=== PATIENT | male | born 1995 | race Caucasian/White ===

== ENCOUNTER 2017-04-05 20:50 | Emergency (ER) | payer BC, OTHER ==
[~2017-04-05] VITALS: Ht 154.9 cm; Wt 76.7 kg
[~2017-04-05 20:50] MED LIST: OMEP20CA59 PO
[2017-04-05 20:54] VITALS: Ht 154.9 cm; Wt 76.7 kg
[2017-04-05 21:44] LABS: BASO % 0.5 %; BASO ABS # 0.04 K/uL (0-0.2); COMPLETE YES; HEMATOCRIT 44.6 % (42-52); IG% 0.3 %; LYMPH % 15.6 %; LYMPH ABS # 1.14 K/uL (1.2-3.4); MEAN CELL VOLUME 91.6 fL (80-100); MEAN CORPUSCULAR HEMOGLOBIN 32.9 pg (25-34); MEAN CORPUSCULAR HGB CONC 35.9 g/dl (32-36); MEAN PLATELET VOLUME 9.3 fL (7.4-10.4); MONO % 7.5 %; NEUT % 76.1 %; PLATELET COUNT 218 K/uL (130-400); RED BLOOD COUNT 4.87 M/uL (4.7-6.1); WHITE BLOOD COUNT 7.31 K/uL (4.8-10.8)
[2017-04-05 22:01] LABS: BUN/CREATININE RATIO 9.5 (10-20); CREATININE 0.97 mg/dl (0.60-1.40); POTASSIUM 3.6 mmol/L (3.5-5.1)
[2017-04-05 22:04] LABS: ALB/GLOB RATIO 0.9 (0.9-2)
[2017-04-05 22:08] LABS: URINE APPEARANCE CLEAR (CLEAR); URINE BILIRUBIN NEG (NEG); URINE COLOR YELLOW; URINE NITRITE NEG (NEG); URINE SPECIFIC GRAVITY 1.011 (1.000-1.030); UROBILINOGEN NEG (NEG); ZZUR CULT IF INDIC CLEAN CATCH NO
[2017-04-05 22:10] LABS: MANUAL MICROSCOPIC REQUIRED? NO; REVIEW REQ? NO
[2017-04-05 22:15] LABS: CALCIUM 8.4 mg/dl (8.5-10.1)
[2017-04-05] MEDS ORDERED: MoRPHine SULFATE 4 MG/ML 1 ML CARP\\VIAL IV STA (22:28)
[2017-04-05] MEDS ORDERED: ONDANSETRON INJ 2 MG/ML 2 ML VIAL IV STA (22:28)
[2017-04-05] MEDS ORDERED: SODIUM CHLORIDE 0.9% 1000ML 1,000 ML IV STA (22:28)
[2017-04-05] MEDS ORDERED: OPTIRAY 320 IV PRN (22:45)
[2017-04-05] MEDS ORDERED: ONDA4TAB10 SL (23:51)
--- NOTE | 2017-04-05 23:52 | EMERGENCY ROOM VISIT NOTE ---
History Report prepared by Melvi: Poppy La Under the Supervision of: Dr. Jovanni Ramesh M.D. First contact with patient: 21:40 Chief Complaint: ABDOMINAL PAIN Stated Complaint: DIARRHEA,COUGH,ABD PAIN,VOMITING,NOT EAT/DRINK History of Present Illness The patient is a 22 year old male who presents to the Emergency Room with complaints of persistent diarrhea starting yesterday. The patient's mother provides the history. He started having diarrhea yesterday which she was not alarmed about at the time. This morning the patient was crying on the toilet which concerned her and he was still having diarrhea. He also has been vomiting. He denied choking on anything. The patient has been clutching his right side and is more diaphoretic. He is not eating or drinking which is very unusual for the patient. He does not have bloody stools or fever. He has a history of Down syndrome. He does not have any history of abdominal surgery. He does not have any other medical problems. Source of History: parent Onset: yesterday Position: other (global) Quality: other (diarrhea) Timing: other (persistent) Associated Symptoms: + diaphoresis, + vomiting, + abdominal pain, No fevers , No hematochezia Note: Pt has decreased appetite. Review of Systems See HPI for pertinent positives & negatives. A total of 10 systems reviewed and were otherwise negative. Past Medical & Surgical Medical Problems: (1) DOWN'S SYNDROME Family History Diabetes mellitus Social History Smoking Status: Never Smoker Alcohol Use: none Drug Use: none Marital Status: single Housing Status: lives with family Occupation Status: disabled, student Current/Historical Medications Scheduled Melatonin (Melatonin), 5 MG PO HS Scheduled PRN Cetirizine Hcl (Zyrtec), 10 MG PO DAILY PRN for Allergy Symptoms Ondasetron Odt (Zofran Odt), 4 MG SL Q6H PRN for Nausea Allergies Coded Allergies: No Known Allergies (Verified , 04/05/17) Physical Exam Vital Signs Date Time Temp Pulse Resp B/P (MAP) Pulse Ox O2 Delivery O2 Flow Rate FiO2 04/06/17 00:45 36.7 75 16 116/81 96 04/06/17 00:41 75 16 116/81 96 Room Air 04/05/17 22:49 36.7 58 16 132/92 98 Room Air 04/05/17 20:54 36.7 55 20 122/90 99 Room Air Physical Exam GENERAL: Patient is in moderate distress, nonverbal, consistent with Down's syndrome. HEENT: No acute trauma, normocephalic atraumatic, mucous membranes moist, no nasal congestion, no scleral icterus. NECK: No stridor, no adenopathy, no meningismus, trachea is midline. LUNGS: No dyspnea. Clear to auscultation and equal bilaterally. No wheeze, no rhonchi. HEART: Regular rate and rhythm. No murmurs, rubs, gallops appreciated. ABDOMEN: Soft, tenderness to palpation of the entire abdomen, nonfocal, bowel sounds positive, no masses appreciated, no peritonitis. BACK: No midline tenderness, no CVA tenderness EXTREMITIES: Normal motion all extremities, no cyanosis, no edema. NEUROLOGIC: Alert and oriented, no acute motor or sensory deficits, no focal weakness, cranial nerves grossly intact. SKIN: No rash, no jaundice, no diaphoresis. Medical Decision & Procedures ER Provider Diagnostic Interpretation: Radiology results and stated below per my review and [facility] radiologist interpretation: CT abdomen & pelvis: The liver, gallbladder, spleen, pancreas, adrenal glands, and kidneys show no substantial abnormality. Appendix is unremarkable. Multiple loops of bowel are fluid-filled. Some demonstrate questionable wall thickening. No dilation. Question minimal wall thickening of the proximal transverse colon. The combination of findings could represent minimal enterocolitis. Borderline mesenteric lymphadenopathy, particularly in the upper/central abdomen. May be reactive to subtle underlying infection such as an enteritis. Laboratory Results 04/05/17 21:10 Red Blood Count 4.87, Mean Corpuscular Volume 91.6, Mean Corpuscular Hemoglobin 32.9, Mean Corpuscular Hemoglobin Concent 35.9, Mean Platelet Volume 9.3, Neutrophils (%) (Auto) 76.1, Lymphocytes (%) (Auto) 15.6, Monocytes (%) (Auto) 7.5, Eosinophils (%) (Auto) 0.0, Basophils (%) (Auto) 0.5, Neutrophils # (Auto) 5.56, Lymphocytes # (Auto) 1.14, Monocytes # (Auto) 0.55, Eosinophils # (Auto) 0.00, Basophils # (Auto) 0.04 04/05/17 21:10 Test 04/05/17 21:10 04/05/17 21:55 White Blood Count 7.31 K/uL (4.8-10.8) Red Blood Count 4.87 M/uL (4.7-6.1) Hemoglobin 16.0 g/dL (14.0-18.0) Hematocrit 44.6 % (42-52) Mean Corpuscular Volume 91.6 fL (80-100) Mean Corpuscular Hemoglobin 32.9 pg (25-34) Mean Corpuscular Hemoglobin Concent 35.9 g/dl (32-36) Platelet Count 218 K/uL (130-400) Mean Platelet Volume 9.3 fL (7.4-10.4) Neutrophils (%) (Auto) 76.1 % Lymphocytes (%) (Auto) 15.6 % Monocytes (%) (Auto) 7.5 % Eosinophils (%) (Auto) 0.0 % Basophils (%) (Auto) 0.5 % Neutrophils # (Auto) 5.56 K/uL (1.4-6.5) Lymphocytes # (Auto) 1.14 K/uL (1.2-3.4) Monocytes # (Auto) 0.55 K/uL (0.11-0.59) Eosinophils # (Auto) 0.00 K/uL (0-0.5) Basophils # (Auto) 0.04 K/uL (0-0.2) RDW Standard Deviation 43.6 fL (36.4-46.3) RDW Coefficient of Variation 13.0 % (11.5-14.5) Immature Granulocyte % (Auto) 0.3 % Immature Granulocyte # (Auto) 0.02 K/uL (0.00-0.02) Anion Gap 11.0 mmol/L (3-11) Est Creatinine Clear Calc Drug Dose 106.6 ml/min Estimated GFR () 129.7 Estimated GFR (Non- 111.9 BUN/Creatinine Ratio 9.5 (10-20) Calcium Level 8.4 mg/dl (8.5-10.1) Total Bilirubin 0.7 mg/dl (0.2-1) Aspartate Amino Transf (AST/SGOT) 26 U/L (15-37) Alanine Aminotransferase (ALT/SGPT) 67 U/L (12-78) Alkaline Phosphatase 68 U/L (45-117) Total Protein 7.5 gm/dl (6.4-8.2) Albumin 3.6 gm/dl (3.4-5.0) Globulin 3.9 gm/dl (2.5-4.0) Albumin/Globulin Ratio 0.9 (0.9-2) Lipase 117 U/L (73-393) Urine Color YELLOW Urine Appearance CLEAR (CLEAR) Urine pH 6.0 (4.5-7.5) Urine Specific [place] 1.011 (1.000-1.030) Urine Protein NEG (NEG) Urine Glucose (UA) NEG (NEG) Urine Ketones NEG (NEG) Urine Occult Blood NEG (NEG) Urine Nitrite NEG (NEG) Urine Bilirubin NEG (NEG) Urine Urobilinogen NEG (NEG) Urine Leukocyte Esterase NEG (NEG) Date/Time Source Procedure Growth Status 04/05/17 22:25 Stool C.difficile Toxin B Gene (PCR) - Final No C. difficile toxin B gene detected Complete Laboratory results as reviewed by me. Medications Administered Medications (Trade) Dose Ordered Sig/Debora Route Start Time Stop Time Status Last Admin Dose Admin Morphine Sulfate (MoRPHine SULFATE INJ) 4 mg NOW STAT IV 04/05/17 22:28 04/05/17 22:29 DC 04/05/17 22:47 4 MG Ondansetron HCl (Zofran Inj) 4 mg NOW STAT IV 04/05/17 22:28 04/05/17 22:29 DC 04/05/17 22:46 4 MG Sodium Chloride 1,000 ml @ 999 mls/hr Q1H1M STAT IV 04/05/17 22:28 04/05/17 23:28 DC 04/05/17 22:46 999 MLS/HR Ondansetron HCl (ZOFRAN ODT 4MG Home Pack) 1 homepack UD ONCE PO 04/06/17 00:00 04/06/17 00:01 DC 04/06/17 00:40 1 HOMEPACK Oxycodone HCl (Roxicodone Immediate Rel 5MG Home Pack) 1 homepack UD ONCE PO 04/06/17 00:00 04/06/17 00:01 DC 04/06/17 00:39 1 HOMEPACK ED Course 2153: The patient was evaluated in room A10. A complete history and physical exam was performed. 2228: NSS 1000 ml @ 999 mls/hr IV, Zofran Inj 4 mg IV, Morphine Sulfate 4 mg IV. 2349: I reevaluated the patient. He is feeling much better. He is sleeping, but easily aroused. I discussed results and discharge instructions with his mother: She verbalized understanding and agreement. The patient is ready for discharge. 0000: Oxycodone HCl 1 homepack PO, Ondansetron HCl 1 homepack PO. Medical Decision Differential: Appendicitis, Diverticulitis, PUD/Gastritis, Biliary Pathology, UTI, Pyelonephritis, Renal Colic, Bowel Obstruction, Aortic Pathology, Acute Coronary Syndrome, amongst other pathologies entertained. Medication Reconciliation: I attest that I have personally reviewed the patient 's current medication list. Blood Pressure Screening: Patient was found to have a slightly elevated blood pressure due to circumstances. I do not believe that the patient requires hypertension monitoring. 22 yr old non-verbal male arrives with abdominal pain, vomiting, and diarrhea. Difficult to get good exam and with his symptoms seems reasonable doing CT abdo/ pelv for further evaluation. Labs looking OK. CT abdo pelv consistent with enteritis and mesenteric adenitis. No surgical findings. With zofran/morphine he is much better and sleeping. Easily awoken. Will given limited narc as outpatient for symptoms control along with zofran. Reviewed symptoms requiring RTED. Impression Primary Impression: Acute gastroenteritis Additional Impressions: Mesenteric adenitis Dehydration Nausea, vomiting and diarrhea Scribe Attestation The scribe's documentation has been prepared under my direction and personally reviewed by me in its entirety. I confirm that the note above accurately reflects all work, treatment, procedures, and medical decision making performed by me. Departure Information Dispostion Home / Self-Care Prescriptions Ondasetron Odt (ZOFRAN ODT) 4 Mg Tab 4 MG SL Q6H Y for Nausea, #15 TAB Prov: Jovanni Ramesh M.D. 04/05/17 Referrals Martita Strong MD (PCP) Patient Instructions ED Gastroenteritis Viral, [facility] Additional Instructions You have received a narcotic pain medication to go. Use 1/2 to 1 tab every 6 hours as needed for discomfort. These medications may cause drowsiness and should not be used with other sedative medications. Do not perform dangerous activities after taking these medications. shelter use or inappropriate use may lead to addiction. If pain is significantly worsening or if continues after pain medication runs out, return for further evaluation and treatment. Problem Qualifiers
[2017-04-06] MEDS ORDERED: OXYCODONE IR HOME PACK PO ONE
[2017-04-06] MEDS ORDERED: ONDANSETRON HOME PACK 4MG OD TAB PO ONE
[2017-04-06 00:45] VITALS: BP 116/81; PULSE 75; TEMP 36.7; O2SAT 96
--- NOTE | 2017-04-06 07:33 | DIAGNOSTIC IMAGING REPORT ---
ABDOMEN AND PELVIS CT WITH IV CONTRAST CT DOSE: 386.04 mGy.cm HISTORY: diffuse abdominal pain, vomiting, diarrhea, TECHNIQUE: Multiaxial CT images of the abdomen and pelvis were performed following the use of intravenous contrast. COMPARISON STUDY: Abdomen and pelvis CT 02/20/2010. FINDINGS: The lung bases are clear. There is a left L5 pars defect. The liver, gallbladder, spleen, adrenal glands, pancreas, and kidneys are unremarkable. No retroperitoneal lymphadenopathy. Bladder is not well-distended but appears unremarkable. No evidence for bowel obstruction. Normal appendix. Questionable thickening within the proximal transverse colon is likely due to underdistention. No pericolonic fat stranding to suggest an acute process at this time. A few prominent mesenteric lymph nodes. IMPRESSION: 1. No definite bowel wall thickening or obstruction. 2. Normal appendix. 3. Questionable thickening within the proximal transverse colon is likely due to underdistention. Electronically signed by: Hugh Johnson M.D. 04/06/2017 7:32 AM Dictated Date/Time: 04/06/2017 7:27 AM
[2017-07-08] MEDS ORDERED: CETI10TA10 PO (15:31)
== END 2017-04-06 00:45 | disposition home or self-care (01) ==
LOC: C.EDB 20:51 → C.EDA 04-06 00:45
DX: K52.9 Noninfective gastroenteritis and colitis, unspecified (principal); I88.0 Nonspecific mesenteric lymphadenitis; E86.0 Dehydration; R11.0 Nausea; R19.7 Diarrhea, unspecified; Q90.9 Down syndrome, unspecified; Z83.3 Family history of diabetes mellitus

== ENCOUNTER 2017-07-08 16:43 | Emergency (ER) | payer BC, OTHER ==
[~2017-07-08] VITALS: Ht 154.9 cm; Wt 77.5 kg
[~2017-07-08 16:43] MED LIST changes: +CETI10TA10 PO; -OMEP20CA59 PO; +ONDA4TAB10 SL
[2017-07-08 16:46] VITALS: TEMP 36.7; Ht 154.9 cm; Wt 77.5 kg
[2017-07-08] MEDS ORDERED: SODIUM CHLORIDE 0.9% 1000ML 1,000 ML IV STA (17:01)
[2017-07-08 17:37] LABS: BASO % 0.9 %; BASO ABS # 0.06 K/uL (0-0.2); COMPLETE YES; EOS % 0.9 %; HEMATOCRIT 45.9 % (42-52); IG% 0.2 %; LYMPH % 24.6 %; LYMPH ABS # 1.56 K/uL (1.2-3.4); MEAN CELL VOLUME 91.8 fL (80-100); MEAN CORPUSCULAR HEMOGLOBIN 32.8 pg (25-34); MEAN CORPUSCULAR HGB CONC 35.7 g/dl (32-36); MEAN PLATELET VOLUME 9.4 fL (7.4-10.4); MONO % 7.6 %; NEUT % 65.8 %; PLATELET COUNT 211 K/uL (130-400); WHITE BLOOD COUNT 6.35 K/uL (4.8-10.8)
[2017-07-08 17:54] LABS: CALCIUM 9.1 mg/dl (8.5-10.1); CREATININE 1.1 mg/dl (0.60-1.40); POTASSIUM 3.9 mmol/L (3.5-5.1)
--- NOTE | 2017-07-08 18:16 | DIAGNOSTIC IMAGING REPORT ---
CHEST ONE VIEW PORTABLE CLINICAL HISTORY: cough CONGESTION. ABDOMINAL PAIN. COMPARISON STUDY: 05/24/2016 FINDINGS: The heart is normal in size. There is no focal pulmonary consolidation. There is slight interstitial prominence which may in part relate to technical factors. There are no pleural effusions. There is no free air.[ IMPRESSION: Slight interstitial prominence, a finding likely related to technical factors. No evidence of focal pulmonary consolidation. No evidence of free air. Electronically signed by: Deshawn William M.D. 07/08/2017 6:14 PM Dictated Date/Time: 07/08/2017 6:14 PM
--- NOTE | 2017-07-08 18:19 | DIAGNOSTIC IMAGING REPORT ---
CT SCAN OF THE ABDOMEN AND PELVIS WITHOUT CONTRAST CLINICAL HISTORY: Diffuse abdominal pain COMPARISON STUDY: 04/05/2017 TECHNIQUE: CT scan of the abdomen and pelvis was performed from the lung bases to the proximal femurs. Images are reviewed in the axial, sagittal, and coronal planes. IV contrast was not administered for this examination. A dose lowering technique was utilized adhering to the principles of ALARA. CT DOSE: 859.33 mGy.cm FINDINGS: Lower chest: There is mild respiratory motion artifact. There is no focal pulmonary consolidation. Liver: The unenhanced liver is normal in size, contour, and attenuation. There is no intrahepatic biliary ductal dilatation. Gallbladder: Unremarkable. Spleen: Normal in size and attenuation. Pancreas: Unremarkable. Adrenal glands: Unremarkable. Kidneys: No renal, ureteral, or bladder calculi are visualized. Bowel: There are no transition zones indicate bowel obstruction. The appendix appears normal. There is no acute diverticulitis. Peritoneum: There is no intraperitoneal free air or abdominal ascites. Vasculature: The abdominal aorta is normal in course and caliber. Adenopathy: None. Pelvic viscera: The bladder, and pelvic viscera are unremarkable. Skeletal structures: There is left L5 spondylolysis. IMPRESSION: 1. No acute intra-abdominal or pelvic findings 2. No evidence of bowel obstruction. No evidence of free air 3. No renal, ureteral, or bladder calculi identified 4. Normal appendix. Electronically signed by: Deshawn William M.D. 07/08/2017 6:18 PM Dictated Date/Time: 07/08/2017 6:16 PM
--- NOTE | 2017-07-08 18:37 | EMERGENCY ROOM VISIT NOTE ---
History Report prepared by Melvi: Poppy La Under the Supervision of: Dr. Jerrell White M.D. First contact with patient: 16:47 Chief Complaint: ABDOMINAL PAIN Stated Complaint: CONGESTION,ABD PAIN History of Present Illness The patient is a 22 year old male who presents to the Emergency Room with complaints of persistent abdominal pain starting today. The patient's mother notes that he has had nasal congestion and cough starting 2 days ago. Today, he began pointing to his abdomen and seems to have abdominal pain. He is also pointing to his back. He has not had any fever, vomiting, or urinary symptoms. He has had normal bowel movements. He has a rash on his chest which has been present for a while. The history is limited due to the patient's Down's syndrome. Source of History: parent History Limited By: other (Down's syndrome) Onset: today Position: abdomen Quality: other (pain) Timing: other (persistent) Associated Symptoms: + cough Review of Systems Limited due to patient's down's syndrome. Past Medical & Surgical Medical Problems: (1) DOWN'S SYNDROME Family History Diabetes mellitus Social History Smoking Status: Never Smoker Alcohol Use: none Drug Use: none Marital Status: single Housing Status: lives with family Occupation Status: disabled, student Current/Historical Medications Scheduled Cetirizine Hcl (Zyrtec), 10 MG PO DAILY Melatonin (Melatonin), 5 MG PO HS Allergies Coded Allergies: No Known Allergies (Verified , 04/05/17) Physical Exam Vital Signs Date Time Temp Pulse Resp B/P (MAP) Pulse Ox O2 Delivery O2 Flow Rate FiO2 07/08/17 19:30 88 20 125/82 99 Room Air 07/08/17 18:33 88 17 115/82 95 Room Air 07/08/17 16:46 36.7 88 17 106/67 95 Room Air Physical Exam GENERAL: Awake, alert, well-appearing, in no distress HENT: Normocephalic, atraumatic. Oropharynx unremarkable. EYES: Normal conjunctiva. Sclera non-icteric. NECK: Supple. No nuchal rigidity. FROM. No JVD. RESPIRATORY: Clear to auscultation. Mild cough. CARDIAC: Regular rate, normal rhythm. Extremities warm and well perfused. Pulses equal. ABDOMEN: Soft, non-distended. Generalized abdominal tenderness to palpation. No rebound or guarding. No masses. RECTAL: Deferred. MUSCULOSKELETAL: Chest examination reveals no tenderness. The back is symmetrical on inspection without obvious abnormality. There is no CVA tenderness to palpation. No joint edema. LOWER EXTREMITIES: Calves are equal size bilaterally and non-tender. No edema. No discoloration. NEURO: Down's syndrome. No sensory or motor deficits noted. Follows commands. SKIN: No rash or jaundice noted. Medical Decision & Procedures ER Provider Diagnostic Interpretation: Radiology results as stated below per my review and radiologist interpretation: CHEST ONE VIEW PORTABLE CLINICAL HISTORY: cough CONGESTION. ABDOMINAL PAIN. COMPARISON STUDY: 05/24/2016 FINDINGS: The heart is normal in size. There is no focal pulmonary consolidation. There is slight interstitial prominence which may in part relate to technical factors. There are no pleural effusions. There is no free air.[ IMPRESSION: Slight interstitial prominence, a finding likely related to technical factors. No evidence of focal pulmonary consolidation. No evidence of free air. Electronically signed by: Deshawn William M.D. 07/08/2017 6:14 PM Dictated Date/Time: 07/08/2017 6:[address] SCAN OF THE ABDOMEN AND PELVIS WITHOUT CONTRAST CLINICAL HISTORY: Diffuse abdominal pain COMPARISON STUDY: 04/05/2017 TECHNIQUE: CT scan of the abdomen and pelvis was performed from the lung bases to the proximal femurs. Images are reviewed in the axial, sagittal, and coronal planes. IV contrast was not administered for this examination. A dose lowering technique was utilized adhering to the principles of ALARA. CT DOSE: 859.33 mGy.cm FINDINGS: Lower chest: There is mild respiratory motion artifact. There is no focal pulmonary consolidation. Liver: The unenhanced liver is normal in size, contour, and attenuation. There is no intrahepatic biliary ductal dilatation. Gallbladder: Unremarkable. Spleen: Normal in size and attenuation. Pancreas: Unremarkable. Adrenal glands: Unremarkable. Kidneys: No renal, ureteral, or bladder calculi are visualized. Bowel: There are no transition zones indicate bowel obstruction. The appendix appears normal. There is no acute diverticulitis. Peritoneum: There is no intraperitoneal free air or abdominal ascites. Vasculature: The abdominal aorta is normal in course and caliber. Adenopathy: None. Pelvic viscera: The bladder, and pelvic viscera are unremarkable. Skeletal structures: There is left L5 spondylolysis. IMPRESSION: 1. No acute intra-abdominal or pelvic findings 2. No evidence of bowel obstruction. No evidence of free air 3. No renal, ureteral, or bladder calculi identified 4. Normal appendix. Electronically signed by: Deshawn William M.D. 07/08/2017 6:18 PM Dictated Date/Time: 07/08/2017 6:16 PM Laboratory Results 07/08/17 17:25 Red Blood Count 5.00, Mean Corpuscular Volume 91.8, Mean Corpuscular Hemoglobin 32.8, Mean Corpuscular Hemoglobin Concent 35.7, Mean Platelet Volume 9.4, Neutrophils (%) (Auto) 65.8, Lymphocytes (%) (Auto) 24.6, Monocytes (%) (Auto) 7.6, Eosinophils (%) (Auto) 0.9, Basophils (%) (Auto) 0.9, Neutrophils # (Auto) 4.18, Lymphocytes # (Auto) 1.56, Monocytes # (Auto) 0.48, Eosinophils # (Auto) 0.06, Basophils # (Auto) 0.06 07/08/17 17:25 Test 07/08/17 17:25 07/08/17 18:28 White Blood Count 6.35 K/uL (4.8-10.8) Red Blood Count 5.00 M/uL (4.7-6.1) Hemoglobin 16.4 g/dL (14.0-18.0) Hematocrit 45.9 % (42-52) Mean Corpuscular Volume 91.8 fL (80-100) Mean Corpuscular Hemoglobin 32.8 pg (25-34) Mean Corpuscular Hemoglobin Concent 35.7 g/dl (32-36) Platelet Count 211 K/uL (130-400) Mean Platelet Volume 9.4 fL (7.4-10.4) Neutrophils (%) (Auto) 65.8 % Lymphocytes (%) (Auto) 24.6 % Monocytes (%) (Auto) 7.6 % Eosinophils (%) (Auto) 0.9 % Basophils (%) (Auto) 0.9 % Neutrophils # (Auto) 4.18 K/uL (1.4-6.5) Lymphocytes # (Auto) 1.56 K/uL (1.2-3.4) Monocytes # (Auto) 0.48 K/uL (0.11-0.59) Eosinophils # (Auto) 0.06 K/uL (0-0.5) Basophils # (Auto) 0.06 K/uL (0-0.2) RDW Standard Deviation 44.2 fL (36.4-46.3) RDW Coefficient of Variation 13.2 % (11.5-14.5) Immature Granulocyte % (Auto) 0.2 % Immature Granulocyte # (Auto) 0.01 K/uL (0.00-0.02) Anion Gap 6.0 mmol/L (3-11) Est Creatinine Clear Calc Drug Dose 94.5 ml/min Estimated GFR () 111.4 Estimated GFR (Non- 96.1 BUN/Creatinine Ratio 11.0 (10-20) Calcium Level 9.1 mg/dl (8.5-10.1) Total Bilirubin 0.3 mg/dl (0.2-1) Direct Bilirubin 0.1 mg/dl (0-0.2) Aspartate Amino Transf (AST/SGOT) 20 U/L (15-37) Alanine Aminotransferase (ALT/SGPT) 52 U/L (12-78) Alkaline Phosphatase 84 U/L (45-117) Total Protein 7.6 gm/dl (6.4-8.2) Albumin 3.6 gm/dl (3.4-5.0) Lipase 112 U/L (73-393) Urine Color YELLOW Urine Appearance TURBID (CLEAR) Urine pH 7.5 (4.5-7.5) Urine Specific [place] 1.026 (1.000-1.030) Urine Protein NEG (NEG) Urine Glucose (UA) NEG (NEG) Urine Ketones NEG (NEG) Urine Occult Blood NEG (NEG) Urine Nitrite NEG (NEG) Urine Bilirubin NEG (NEG) Urine Urobilinogen NEG (NEG) Urine Leukocyte Esterase NEG (NEG) Urine WBC (Auto) 1-5 /hpf (0-5) Urine RBC (Auto) 0-4 /hpf (0-4) Urine Hyaline Casts (Auto) 1-5 /lpf (0-5) Urine Epithelial Cells (Auto) 0-5 /lpf (0-5) Urine Bacteria (Auto) NEG (NEG) Laboratory results reviewed by me Medications Administered Medications (Trade) Dose Ordered Sig/Debora Route Start Time Stop Time Status Last Admin Dose Admin Sodium Chloride 1,000 ml @ 999 mls/hr Q1H1M STAT IV 07/08/17 17:01 07/08/17 18:01 DC 07/08/17 17:41 999 MLS/HR ED Course 165: The patient was evaluated in room B3A. A complete history and physical exam was performed. 170: NSS 1000 ml @ 999 mls/hr IV. 1908: I reevaluated the patient. He is stable. I discussed results and discharge instructions with his mother: She verbalized understanding and agreement. The patient is ready for discharge. Medical Decision Triage Nursing notes reviewed. The patient's presentation and history were concerning for cough and abdominal pain. Etiologies such as bronchitis, pneumonia, URI, appendicitis, diverticulitis, obstruction, inflammatory bowel disease, renal colic, PUD, biliary pathology, pancreatitis, mesenteric ischemia, aortic pathology, infections, genitourinary, UTI, perforated viscus, as well as others were entertained. Patient was evaluated. Clinically he was doing well but had apparent tenderness on abdominal examination. The patient's mother states it is difficult to ascertain details from him as he will focus on any symptoms and really play into the process. Because of this challenge he had an IV established. X-ray and CT imaging was performed. He had an unremarkable CBC, chemistry panel, LFTs and lipase. Chest x-ray revealed no pneumonia. CT scan of the abdomen and pelvis revealed no intra-abdominal findings. He had a normal appendix. The patient was hydrated. He was observed. I discussed conservative management with the patient's mother. He needs close outpatient follow-up. By the evaluation outlined above other emergent etiologies such as those listed in the differential, as well as others, were deemed relatively unlikely. The patient's mother was educated about the findings as listed above. All questions were answered and they were was pleased with the treatment. Return instructions were outlined and the patient was discharged in stable condition. The patient was referred to his PCP for follow-up for a recheck of the current condition. Medication Reconcilliation Current Medication List: was personally reviewed by me Blood Pressure Screening Patient's blood pressure: Normal blood pressure Blood pressure disposition: Did not require urgent referral Impression Primary Impression: Cough Additional Impression: Right upper quadrant abdominal pain Scribe Attestation The scribe's documentation has been prepared under my direction and personally reviewed by me in its entirety. I confirm that the note above accurately reflects all work, treatment, procedures, and medical decision making performed by me. Departure Information Dispostion Home / Self-Care Referrals Martita Strong MD (PCP) Forms HOME CARE DOCUMENTATION FORM, IMPORTANT VISIT INFORMATION Patient Instructions My [facility] Additional Instructions Ibuprofen(Motrin, Advil) may be used for fever or pain. Use 600mg every six hours as needed. Take with food. Avoid using more than 2400mg in a 24 hour period. Do not use 2400mg per day for more than three consecutive days without physician direction. Prolonged inappropriate use can lead to stomach upset or ulcers. (AND/OR) Acetaminophen(Tylenol) may be used for fever or pain. Use 1000mg every six hours as needed. Avoid using more than 4000mg in a 24 hour period. Phenergan(promethazine) tablets 25mg: Take one every six hours as needed for nausea. Avoid alcohol, operating machinery or dangerous equipment, working on ladders or roofs, DRIVING, or situations where being under the influence may be dangerous. Rest and drink plenty of fluids as tolerated. Slow sips of water or sports drinks are recommended instead of large amounts all at once. Continue current medications. Once your stomach is settled start with a clear liquid diet (jello, soup broth, etc.) and then advance as tolerated. You should avoid full, heavy meals for about 24 hrs from the time your symptoms resolved. Return to the ER immediately for worsening or persistent abdominal pain, vomiting, fevers, chest pains, difficulty breathing, black or bloody stools, worsening of your condition, or as needed. Follow up with your primary physician in 2-3 days for a recheck of your current condition. Problem Qualifiers
[2017-07-08 18:44] LABS: URINE APPEARANCE TURBID (CLEAR); URINE BILIRUBIN NEG (NEG); URINE COLOR YELLOW; URINE EPITHELIAL CELL AUTO 0-5 /lpf (0-5); URINE NITRITE NEG (NEG); URINE PH 7.5 (4.5-7.5); URINE SPECIFIC GRAVITY 1.026 (1.000-1.030); UROBILINOGEN NEG (NEG); ZZUR CULT IF INDIC CLEAN CATCH NO
[2017-07-08 18:45] LABS: MANUAL MICROSCOPIC REQUIRED? NO; REVIEW REQ? NO
[2017-07-08 19:30] VITALS: BP 125/82; PULSE 88; O2SAT 99
[2017-07-08] MEDS ORDERED: MELA1TAB54 PO (22:01)
== END 2017-07-08 19:32 | disposition home or self-care (01) ==
LOC: C.EDB 16:43
DX: R05 Cough (principal); R10.11 Right upper quadrant pain; Q90.9 Down syndrome, unspecified; Z83.3 Family history of diabetes mellitus; Z79.899 Other long term (current) drug therapy

== ENCOUNTER → 2017-07-24 | Outpatient (CLI) | payer BC, OTHER ==
[~2017-07-24] MED LIST changes: +MELA1TAB54 PO; -ONDA4TAB10 SL
== END | disposition home or self-care (01) ==
LOC: C.LABSPEC 16:17
PROVIDERS: ATTEND Dermatology
DX: L73.9 Follicular disorder, unspecified (principal)

== ENCOUNTER → 2017-08-14 | Outpatient (CLI) | payer BC, OTHER ==
[~2017-08-14] MED LIST changes: +PSEU30TA20 PO; +RANITAB33 PO
--- NOTE | 2017-08-14 16:40 | DIAGNOSTIC IMAGING REPORT ---
KUB CLINICAL HISTORY: R19.7 [id number] COMPARISON STUDY: 07/19/2015 FINDINGS: There is no pathologic bowel dilatation. There are no calcifications suspicious for urinary tract calculi. IMPRESSION: Unremarkable bowel gas pattern. Electronically signed by: Deshawn William M.D. 08/14/2017 4:39 PM Dictated Date/Time: 08/14/2017 4:38 PM
== END | disposition home or self-care (01) ==
LOC: C.RAD1850 16:28
PROVIDERS: ATTEND Nurse Practitioner Family
DX: R19.7 Diarrhea, unspecified (principal)

== ENCOUNTER → 2017-08-15 | Outpatient (CLI) | payer BC, OTHER | END | disposition home or self-care (01) | LOC: C.LABSPEC 12:20 | PROVIDERS: ATTEND Nurse Practitioner Family | DX: R19.7 Diarrhea, unspecified (principal) ==

== ENCOUNTER 2017-08-16 17:36 | Emergency (ER) | payer BC, OTHER ==
[~2017-08-16] VITALS: Ht 157.5 cm; Wt 77.0 kg
[~2017-08-16 17:36] MED LIST changes: -PSEU30TA20 PO; -RANITAB33 PO
[2017-08-16 17:40] VITALS: TEMP 36.6; Ht 157.5 cm; Wt 77.0 kg
[2017-08-16] MEDS ORDERED: SODIUM CHLORIDE 0.9% 500ML 500 ML IV STA (17:50)
[2017-08-16] MEDS ORDERED: RANITAB33 PO (17:52)
[2017-08-16] MEDS ORDERED: PSEU30TA20 PO (17:52)
[2017-08-16] MEDS ORDERED: OPTIRAY 320 IV PRN (18:00)
[2017-08-16 18:21] LABS: BASO % 0.9 %; BASO ABS # 0.07 K/uL (0-0.2); COMPLETE YES; EOS % 1.7 %; HEMATOCRIT 45.9 % (42-52); IG% 0.3 %; LYMPH ABS # 1.48 K/uL (1.2-3.4); MEAN CELL VOLUME 91.3 fL (80-100); MEAN CORPUSCULAR HEMOGLOBIN 32.8 pg (25-34); MEAN CORPUSCULAR HGB CONC 35.9 g/dl (32-36); MEAN PLATELET VOLUME 9.4 fL (7.4-10.4); MONO % 5.3 %; NEUT % 72.8 %; PLATELET COUNT 179 K/uL (130-400); RED BLOOD COUNT 5.03 M/uL (4.7-6.1); WHITE BLOOD COUNT 7.77 K/uL (4.8-10.8)
[2017-08-16 18:38] LABS: BUN/CREATININE RATIO 11.5 (10-20); CALCIUM 8.8 mg/dl (8.5-10.1); CREATININE 0.98 mg/dl (0.60-1.40); POTASSIUM 3.8 mmol/L (3.5-5.1)
--- NOTE | 2017-08-16 19:09 | DIAGNOSTIC IMAGING REPORT ---
ABD/PELVIS IV CONTRAST ONLY HISTORY: 22 years-old Male abd pain acute generalized abdominal pain COMPARISON: CT abdomen and pelvis 07/08/2017 TECHNIQUE: Multiple axial CT images of the abdomen and pelvis were obtained following the intravenous administration of 119 mL Optiray 320. A dose lowering technique was used consistent with the principals of TAMELA. FINDINGS: The lung bases are generally clear, however obscured partially by motion artifact. No pneumoperitoneum. Imaged inferior cardiac chambers are unremarkable. Liver, gallbladder, spleen, pancreas and adrenal glands are within normal limits. Kidneys, ureters, urinary bladder and prostate are unremarkable. The abdominal aorta is normal in both course and caliber. No bulky adenopathy. No bowel obstruction or focal bowel wall thickening. The large bowel is also within normal limits. Terminal ileum and appendix appear normal. Patient obesity noted. Diastases recti. Small fat filled periumbilical hernia, diastases 1.2 cm. 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 IMPRESSION: 1. No acute intra-abdominal or intrapelvic abnormality identified. Normal appendix. 2. Remote appearing unilateral left pars defect at L5 without spondylolisthesis. The above report was generated using voice recognition software. It may contain grammatical, syntax or spelling errors. Electronically signed by: Javier Ramon M.D. 08/16/2017 7:07 PM Dictated Date/Time: 08/16/2017 7:01 PM
[2017-08-16 19:44] LABS: URINE APPEARANCE CLEAR (CLEAR); URINE BILIRUBIN NEG (NEG); URINE COLOR YELLOW; URINE EPITHELIAL CELL AUTO 0-5 /lpf (0-5); URINE NITRITE NEG (NEG); UROBILINOGEN NEG (NEG); ZZUR CULT IF INDIC CLEAN CATCH NO
[2017-08-16 19:47] LABS: MANUAL MICROSCOPIC REQUIRED? NO; REVIEW REQ? NO
[2017-08-16] MEDS ORDERED: HYDROCODONE/HOMATROPINE SYRUP 5MG/1.5MG 5ML UDP PO STA (20:03)
[2017-08-16 20:20] VITALS: BP 107/71; PULSE 85; O2SAT 96
--- NOTE | 2017-08-16 20:26 | DIAGNOSTIC IMAGING REPORT ---
CHEST ONE VIEW PORTABLE HISTORY: 22 years-old Male cough acute cough COMPARISON: Chest radiograph 07/08/2017, CT abdomen and pelvis 08/16/2017 TECHNIQUE: Portable upright AP view of the chest FINDINGS: Ill-defined interstitial opacities of the left lung base suggest composite density artifact from pulmonary vasculature. No consolidative opacities were seen within this distribution on CT study of same day. Cardiomediastinal and hilar silhouettes are within normal limits. There is no pneumothorax, pleural effusion or focal airspace consolidation. Bones of the chest are grossly intact. IMPRESSION: No acute cardiopulmonary process. The above report was generated using voice recognition software. It may contain grammatical, syntax or spelling errors. Electronically signed by: Javier Ramon M.D. 08/16/2017 8:25 PM Dictated Date/Time: 08/16/2017 8:23 PM
--- NOTE | 2017-08-16 22:04 | EMERGENCY ROOM VISIT NOTE ---
History Report prepared by Melvi: Da Choudhury Under the Supervision of: Dr. Jhoan Camarillo D.O. First contact with patient: 17:42 Chief Complaint: GI ASSESSMENT Stated Complaint: FEELING FULL( STOMACH ACHE), GASSEY,COUGH History of Present Illness The patient is a 22 year old male who presents to the Emergency Room with complaints of persistent abdominal pain beginning two days ago. Per mother, the patient was seen by his PCP two days ago after he was complaining of feeling "full". He was tested for C-diff which was negative due to recent antibiotic use for a staph infection of the chest. The patient's mother states that the patient has had diarrhea, diaphoresis, fatigue, sinus congestion, and dry heaves. She states that the patient has been uninterested in his normal activities. She denies any fevers, ear pain, sore throat, or vomiting. HPI limited secondary to MR. Source of History: patient, parent (mother) History Limited By: other (MR) Onset: Two days ago Position: abdomen Timing: other (persistent) Associated Symptoms: + diaphoresis, + diarrhea, + fatigue, No fevers, No sorethroat, No vomiting Note: Additional symptoms: dry heaves, sinus congestion. He denies ear pain. Review of Systems ROS limited secondary to MR. Past Medical & Surgical Medical Problems: (1) DOWN'S SYNDROME Family History Diabetes mellitus Social History Smoking Status: Never Smoker Alcohol Use: none Drug Use: none Marital Status: single Housing Status: lives with family Occupation Status: disabled, student Current/Historical Medications Scheduled Cetirizine Hcl (Zyrtec), 10 MG PO DAILY Melatonin (Melatonin), 5 MG PO HS Pseudoephedrine (Sudafed), 30 MG PO NEEDED Ranitidine Hcl (Zantac), 75 MG PO DAILY Allergies Coded Allergies: No Known Allergies (Verified , 04/05/17) Physical Exam Vital Signs Date Time Temp Pulse Resp B/P (MAP) Pulse Ox O2 Delivery O2 Flow Rate FiO2 08/16/17 20:20 85 18 107/71 96 Room Air 08/16/17 17:40 36.6 75 18 126/81 98 Room Air Physical Exam GENERAL: Sitting up in bed, no acute distress, nontoxic. Able to answer intermittent questions. EYE EXAM: normal conjunctiva. EARS: TMs clear bilaterally. OROPHARYNX: no exudate, no erythema, lips, buccal mucosa, and tongue normal and mucous membranes are moist NECK: supple, no nuchal rigidity, no adenopathy, non-tender LUNGS: Clear to auscultation. Normal chest wall mechanics HEART: no murmurs, S1 normal and S2 normal ABDOMEN: abdomen soft, normo-active bowel sounds, no masses, no rebound or guarding. Mild diffuse tenderness to palpation. BACK: Back is symmetrical on inspection and there is no deformity, no midline tenderness, no CVA tenderness. SKIN: no rashes and no bruising UPPER EXTREMITIES: upper extremities are grossly normal. LOWER EXTREMITIES: No pitting edema. NEURO EXAM: Awake, alert, following commands. Unable to say no per mother. No focal deficit. Cranial nerves II-XII grossly intact, normal speech, no gross weakness of arms, no gross weakness of legs. Medical Decision & Procedures ER Provider Diagnostic Interpretation: Radiology results as stated below per my review and the radiologist's interpretation: ABD/PELVIS IV CONTRAST ONLY FINDINGS: The lung bases are generally clear, however obscured partially by motion artifact. No pneumoperitoneum. Imaged inferior cardiac chambers are unremarkable. Liver, gallbladder, spleen, pancreas and adrenal glands are within normal limits. Kidneys, ureters, urinary bladder and prostate are unremarkable. The abdominal aorta is normal in both course and caliber. No bulky adenopathy. No bowel obstruction or focal bowel wall thickening. The large bowel is also within normal limits. Terminal ileum and appendix appear normal. Patient obesity noted. Diastases recti. Small fat filled periumbilical hernia, diastases 1.2 cm. 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 IMPRESSION: 1. No acute intra-abdominal or intrapelvic abnormality identified. Normal appendix. 2. Remote appearing unilateral left pars defect at L5 without spondylolisthesis. The above report was generated using voice recognition software. It may contain grammatical, syntax or spelling errors. Electronically signed by: Javier Ramon M.D. 08/16/2017 7:07 PM CHEST ONE VIEW PORTABLE FINDINGS: Ill-defined interstitial opacities of the left lung base suggest composite density artifact from pulmonary vasculature. No consolidative opacities were seen within this distribution on CT study of same day. Cardiomediastinal and hilar silhouettes are within normal limits. There is no pneumothorax, pleural effusion or focal airspace consolidation. Bones of the chest are grossly intact. IMPRESSION: No acute cardiopulmonary process. The above report was generated using voice recognition software. It may contain grammatical, syntax or spelling errors Electronically signed by: Javier Ramon M.D. 08/16/2017 8:25 PM Laboratory Results 08/16/17 18:03 Red Blood Count 5.03, Mean Corpuscular Volume 91.3, Mean Corpuscular Hemoglobin 32.8, Mean Corpuscular Hemoglobin Concent 35.9, Mean Platelet Volume 9.4, Neutrophils (%) (Auto) 72.8, Lymphocytes (%) (Auto) 19.0, Monocytes (%) (Auto) 5.3, Eosinophils (%) (Auto) 1.7, Basophils (%) (Auto) 0.9, Neutrophils # (Auto) 5.66, Lymphocytes # (Auto) 1.48, Monocytes # (Auto) 0.41, Eosinophils # (Auto) 0.13, Basophils # (Auto) 0.07 08/16/17 18:03 Test 08/16/17 18:03 08/16/17 19:25 White Blood Count 7.77 K/uL (4.8-10.8) Red Blood Count 5.03 M/uL (4.7-6.1) Hemoglobin 16.5 g/dL (14.0-18.0) Hematocrit 45.9 % (42-52) Mean Corpuscular Volume 91.3 fL (80-100) Mean Corpuscular Hemoglobin 32.8 pg (25-34) Mean Corpuscular Hemoglobin Concent 35.9 g/dl (32-36) Platelet Count 179 K/uL (130-400) Mean Platelet Volume 9.4 fL (7.4-10.4) Neutrophils (%) (Auto) 72.8 % Lymphocytes (%) (Auto) 19.0 % Monocytes (%) (Auto) 5.3 % Eosinophils (%) (Auto) 1.7 % Basophils (%) (Auto) 0.9 % Neutrophils # (Auto) 5.66 K/uL (1.4-6.5) Lymphocytes # (Auto) 1.48 K/uL (1.2-3.4) Monocytes # (Auto) 0.41 K/uL (0.11-0.59) Eosinophils # (Auto) 0.13 K/uL (0-0.5) Basophils # (Auto) 0.07 K/uL (0-0.2) RDW Standard Deviation 43.9 fL (36.4-46.3) RDW Coefficient of Variation 13.4 % (11.5-14.5) Immature Granulocyte % (Auto) 0.3 % Immature Granulocyte # (Auto) 0.02 K/uL (0.00-0.02) Anion Gap 6.0 mmol/L (3-11) Est Creatinine Clear Calc Drug Dose 108.1 ml/min Estimated GFR () 128.1 Estimated GFR (Non- 110.5 BUN/Creatinine Ratio 11.5 (10-20) Calcium Level 8.8 mg/dl (8.5-10.1) Total Bilirubin 0.5 mg/dl (0.2-1) Direct Bilirubin 0.1 mg/dl (0-0.2) Aspartate Amino Transf (AST/SGOT) 15 U/L (15-37) Alanine Aminotransferase (ALT/SGPT) 43 U/L (12-78) Alkaline Phosphatase 85 U/L (45-117) Total Protein 7.8 gm/dl (6.4-8.2) Albumin 3.7 gm/dl (3.4-5.0) Lipase 115 U/L (73-393) Urine Color YELLOW Urine Appearance CLEAR (CLEAR) Urine pH 6.0 (4.5-7.5) Urine Specific [place] 1.040 (1.000-1.030) Urine Protein NEG (NEG) Urine Glucose (UA) NEG (NEG) Urine Ketones NEG (NEG) Urine Occult Blood NEG (NEG) Urine Nitrite NEG (NEG) Urine Bilirubin NEG (NEG) Urine Urobilinogen NEG (NEG) Urine Leukocyte Esterase NEG (NEG) Urine WBC (Auto) 0 /hpf (0-5) Urine RBC (Auto) 0-4 /hpf (0-4) Urine Hyaline Casts (Auto) 0 /lpf (0-5) Urine Epithelial Cells (Auto) 0-5 /lpf (0-5) Urine Bacteria (Auto) NEG (NEG) Laboratory results per my review. Medications Administered Medications (Trade) Dose Ordered Sig/Debora Route Start Time Stop Time Status Last Admin Dose Admin Sodium Chloride 500 ml @ 999 mls/hr Q31M STAT IV 08/16/17 17:50 08/16/17 18:20 DC 08/16/17 18:20 999 MLS/HR Hydrocodone Bit/ Homatropine Methylb (Hycodan Syrup) 5 ml NOW STAT PO 08/16/17 20:03 08/16/17 20:04 DC 08/16/17 20:17 5 ML ED Course ED COURSE: Vital signs were reviewed and appeared normal. The patients medical record was reviewed The above diagnostic studies were performed and reviewed. ED treatments and interventions as stated above. 1743: The patient was evaluated in room A2. A complete history and physical examination was performed. 1749: Ordered Sodium Chloride 500 ml @ 999 mls/hr IV. 1922: I updated the patient and his mother on his test results. 2002: I reassessed the patient. He is coughing. Ordered Hycodan Syrup 5 mL PO. 2029: Upon reevaluation, the patient is resting comfortably.I discussed my findings with the patient's mother and she understands and agrees with the treatment plan. Based on the patients age, coexisting illnesses, exam and lab findings the decision to treat as an outpatient was made. The patient remained stable while under my care. The patient appeared well at the time of discharge. Medical Decision Differential diagnoses includes but is not limited to gastritis, peptic ulcer disease, GERD, gallbladder disease, pancreatitis, small bowel obstruction, acute coronary syndrome, pericarditis, ischemic bowel, irritable bowel disease, irritable bowel syndrome, appendicitis, diverticulitis, malignancy, hernia, urinary tract infection, torsion, perforation, trauma, infectious. Patient is a 22-year-old male who presents to ER with MR and his mother at his side. She notes that he has been coughing/complaining of abdominal fullness. She has had congestion and he is unable to blow his nose. Lungs were clear. Chest x-ray was unremarkable. CT abdomen and pelvis was negative. CBC all BMP , LFTs, bilirubin lipase is unremarkable. UA was negative. Mom was updated bedside. Prior to discharge and was able to experience what she was describing. It does appear that he is forcing himself to cough/gag. I do believe this is likely secondary to a postnasal drip as he continues to sniffle and is unable to clear his throat. Recommended Mucinex as this may dry out his mucus. Hycodan did not work in the ER. Patient was discharged follow-up with PCP. Discussed with parent concerning signs and symptoms to watch out for. Parent was instructed to follow up with their PCP and discussed with the parent their option to return to the ED at anytime for persistent or worsening symptoms. The appropriate anticipatory guidance and out-patient management, including indications for return to the emergency department, were explained at length to the parent and understood. Medication Reconcilliation Current Medication List: was personally reviewed by me Blood Pressure Screening Patient's blood pressure: Normal blood pressure Blood pressure disposition: Did not require urgent referral Impression Primary Impression: Cough Scribe Attestation The scribe's documentation has been prepared under my direction and personally reviewed by me in its entirety. I confirm that the note above accurately reflects all work, treatment, procedures, and medical decision making performed by me. Departure Information Dispostion Home / Self-Care Referrals Martita Strong MD (PCP) Forms HOME CARE DOCUMENTATION FORM, IMPORTANT VISIT INFORMATION Patient Instructions ED Cough Chronic Cause Unkn, My [facility] Additional Instructions Please follow up with your primary care doctor with in the next 24 hours. Any worsening of your symptoms, please return to the ED immediately. This includes any fevers greater than 100.4, worsening pain, chest pain, shortness breath, persistent nausea, vomiting, unable to eat or drink, or any other concerning signs or symptoms from your standpoint. You were given medications during this visit that will inhibit your ability to drive, operate machinery and work. Please do NOT drive, operate machinery, drink alcohol or work for the next 12hrs.
== END 2017-08-16 20:49 | disposition home or self-care (01) ==
LOC: C.EDB 17:38 → C.EDA 20:49
DX: R10.9 Unspecified abdominal pain (principal); R05 Cough; R09.81 Nasal congestion; R19.7 Diarrhea, unspecified; R61 Generalized hyperhidrosis; R53.83 Other fatigue; Q90.9 Down syndrome, unspecified; F79 Unspecified intellectual disabilities; Z83.3 Family history of diabetes mellitus